=== PATIENT | female | born 1950 | race Caucasian/White ===

== ENCOUNTER 2018-10-17 12:38 | Outpatient (CLI) | payer MEDICARE, BC ==
--- NOTE | 2018-10-17 13:16 | RAD ---
CHEST TWO VIEWS: HISTORY: Dyspnea. FINDINGS: The cardiac silhouette and pulmonary vasculature are unremarkable. The mediastinum is midline. No c onfluent air space consolidation, pneumothorax, or pleural fluid is apparent. IMPRESSION: No active cardiopulmonary abnormalities are demonstrated. POS: CET
== END 2018-10-17 12:39 | disposition home or self-care (01) ==
LOC: RAD 12:38
PROVIDERS: ATTEND Internal Medicine Critical Care Medicine
DX: R06.00 Dyspnea, unspecified (principal)
CPT/HCPCS: 71046

== ENCOUNTER 2022-10-20 13:26 | Outpatient (CLI) | payer MEDICARE, BC ==
[2022-10-20 15:25] LABS: #Eosinphils 0.1 10x3/uL (0.0-0.5); #Monocytes 0.7 10x3/uL (0.0-1.1); #Neutrophils 3.5 10x3/uL (1.5-8.4); %Basophils 0.5 % (0.0-2.0); %Eosinophils 2.3 % (0.0-6.0); %Lymphocytes 30.2 % (18.0-47.0); %Monocytes 11.3 % (0.0-10.0); %Neutrophils 55.7 % (40.0-75.0); Mean Corpuscular HGB CONC 31.9 g/dL (32.0-36.0); Mean Corpuscular Hemoglobin 30.3 pg (27.0-33.0); Mean Corpuscular Volume 94.9 fl (81.6-98.3); Platelet Count 160 10x3/uL (150-450); RBC Distribution Width 13.3 % (11.5-14.5); Red Blood Cell (RBC) Count 3.96 10x6/uL (3.90-5.03); White Blood Cell (WBC) Count 6.2 10x3/uL (3.5-10.5)
[2022-10-20 15:42] LABS: ALT (SGPT) 14 U/L (8-55); AST (SGOT) 20 U/L (5-34); Albumin 4.4 g/dL (3.4-4.8); Alkaline Phosphatase 56 U/L (40-110); Anion Gap 12 mmol/L (10-20); BUN (Urea Nitrogen) 12 mg/dL (9.8-20.1); Bilirubin, Total 0.7 mg/dL (0.2-1.2); Calc. Creatinine Clearance 0 mL/min (70-130); Calcium 9.3 mg/dL (7.8-10.44); Carbon Dioxide 27 mmol/L (23-31); Chloride 107 mmol/L (98-107); Estimated GFR 61; Globulin 2.3 g/dL (2.4-3.5); Glucose 186 mg/dL (83-110); Potassium 3.9 mmol/L (3.5-5.1); Protein, Total 6.7 g/dL (5.8-8.1); Sodium 142 mmol/L (136-145)
[2022-10-20 21:11] LABS: Hemoglobin A1c 5.1 % (4.0-6.0)
== END 2022-10-20 13:27 | disposition home or self-care (01) ==
LOC: LABBT 13:26
PROVIDERS: ATTEND Surgery
DX: Z01.818 Encounter for other preprocedural examination (principal); C18.7 Malignant neoplasm of sigmoid colon; R16.0 Hepatomegaly, not elsewhere classified
CPT/HCPCS: 80053; 83036; 85025; 93005; 93010

== ENCOUNTER 2022-10-20 13:30 | Inpatient (IN) | payer MEDICARE, BC ==
[2022-10-20 13:51] VITALS: BMI 26.5
[2022-10-24] MEDS ORDERED: fentaNYL PF 100 MCG/2 ML SYRINGE ONE (06:51)
[2022-10-24] MEDS ORDERED: Midazolam HCl 2 mg/2 ml Vial ONE (07:12)
[2022-10-24] MEDS ORDERED: fentaNYL 50 mcg/mL 1 mL Vial ONE (07:12)
[2022-10-24] MEDS ORDERED: Sodium Chloride 0.9% 100 ML ONE (07:28)
[2022-10-24] MEDS ORDERED: cefOXitin 2 GM VIAL ONE (07:28)
[2022-10-24] MEDS ORDERED: Ondansetron PF 4 MG/2 ML Vial ONE (07:40)
[2022-10-24] MEDS ORDERED: Bupivacaine HCl 0.5%/Epinephrine 1:200,000/PF 30 ml Vial ONE (07:40)
[2022-10-24] MEDS ORDERED: Dexamethasone 20 MG/5 ML VIAL ONE (07:40)
[2022-10-24] MEDS ORDERED: PHENYLEPHRINE-NS 100 MCG/ML 10 ML SYRINGE ONE (07:40)
[2022-10-24] MEDS ORDERED: Lidocaine 1% PF 5 ML VIAL ONE (07:40)
[2022-10-24] MEDS ORDERED: PROPOFOL 200 MG/20 ML VIAL ONE (07:40)
[2022-10-24] MEDS ORDERED: Rocuronium Bromide 10 MG/ML (10ML VIAL) ONE (07:40)
[2022-10-24] MEDS ORDERED: SUGAMMADEX SODIUM 200 MG/2 ML VIAL ONE (09:14)
[2022-10-24] MEDS ORDERED: Promethazine HCl 25 MG/ML VIAL IM PRN ×2 (09:34→09:47)
[2022-10-24] MEDS ORDERED: Morphine 2 MG/ML VIAL SLOW IVP PRN (09:34)
[2022-10-24] MEDS ORDERED: Ipratropium/Albuterol 3 ML NEB NEB PRN (09:34)
[2022-10-24] MEDS ORDERED: Ondansetron PF 4 MG/2 ML Vial IVP PRN (09:34)
[2022-10-24] MEDS ORDERED: hydrALAZINE 20 MG/ML VIAL SLOW IVP PRN (09:34)
[2022-10-24] MEDS ORDERED: Ondansetron HCl/PF 4 MG/2 ML Vial IVP PRN (09:47)
[2022-10-24] MEDS ORDERED: Fentanyl 250 MCG/5 ML VIAL ONE (10:00)
[2022-10-24] MEDS ORDERED: Morphine 4 MG/ML VIAL SLOW IVP PRN (10:05)
[2022-10-24] MEDS ORDERED: Ketorolac Tromethamine 30 MG/ML VIAL ONE (11:10)
[2022-10-24] MEDS: Ketorolac Tromethamine 30 MG/ML VIAL IVP SCH ×3 (11:12→23:12)
[2022-10-24] MEDS: Morphine 4 MG/ML VIAL SLOW IVP PRN ×3 (12:06→20:54)
[2022-10-24] MEDS: Sodium Chloride 0.9% 1,000 ML IV SCH ×2 (13:50→20:51)
[2022-10-24] MEDS: cefOXitin Sodium 1 GM in Sodium Chloride 0.9% 100 ML IVPB SCH ×2 (15:48→23:12)
[2022-10-24] MEDS: Famotidine/PF 20 mg/2ml Vial SLOW IVP SCH (20:53)
[2022-10-24] MEDS: Famotidine 20 MG TAB PO SCH (21:07)
[2022-10-25 05:33] LABS: #Monocytes 2.1 thou/uL (0.11-0.59); #Neutrophils 8.4 thou/uL (1.40-6.50); %Basophils 0.2 % (0.0-1.0); %Monocytes 17.3 % (0.0-10.0); %Neutrophils 68.1 % (42.0-75.0); Hemoglobin 10.1 g/dL (12.0-16.0); Mean Corpuscular HGB CONC 30.4 g/dL (32.0-36.0); Mean Corpuscular Hemoglobin 29.7 pg (27.0-31.0); Mean Corpuscular Volume 97.6 fl (78.0-98.0); Mean Platelet Volume 10.6 fL (7.4-10.4); Platelet Count 151 10x3/uL (130-400); RBC Distribution Width 13.2 % (11.5-14.5); White Blood Cell (WBC) Count 12.3 10x3/uL (4.8-10.8)
[2022-10-25] MEDS: Ketorolac Tromethamine 30 MG/ML VIAL IVP SCH ×3 (05:34→16:16)
[2022-10-25] MEDS: Sodium Chloride 0.9% 1,000 ML IV SCH ×3 (05:35→21:24)
[2022-10-25 05:58] LABS: Anion Gap 9 mmol/L (10-20); BUN (Urea Nitrogen) 12 mg/dL (9.8-20.1); Calc. Creatinine Clearance 56 mL/min (70-130); Carbon Dioxide 23 mmol/L (23-31); Chloride 111 mmol/L (98-107); Estimated GFR 63; Glucose 107 mg/dL (83-110); Potassium 4.4 mmol/L (3.5-5.1); Sodium 139 mmol/L (136-145)
[2022-10-25] MEDS: Morphine 4 MG/ML VIAL SLOW IVP PRN (08:41)
[2022-10-25] MEDS: Famotidine 20 MG TAB PO SCH ×2 (08:41→21:11)
[2022-10-25] MEDS: Famotidine/PF 20 mg/2ml Vial SLOW IVP SCH ×2 (11:05→21:24)
[2022-10-26] MEDS: Ketorolac Tromethamine 30 MG/ML VIAL IVP SCH ×5 (00:01→23:47)
[2022-10-26] MEDS: Sodium Chloride 0.9% 1,000 ML IV SCH ×3 (00:57→20:37)
[2022-10-26] MEDS: Famotidine 20 MG TAB PO SCH ×2 (09:38→20:37)
[2022-10-26] MEDS: Famotidine/PF 20 mg/2ml Vial SLOW IVP SCH ×2 (11:01→23:56)
[2022-10-27] MEDS: Ketorolac Tromethamine 30 MG/ML VIAL IVP SCH (05:11)
[2022-10-27] MEDS: Sodium Chloride 0.9% 1,000 ML IV SCH (05:57)
[2022-10-27] MEDS: Famotidine 20 MG TAB PO SCH (08:27)
[2022-10-27] MEDS: Famotidine/PF 20 mg/2ml Vial SLOW IVP SCH (08:27)
[2022-10-27 09:32] VITALS: TEMP 98.1
[2022-10-27 12:21] VITALS: BP 163/79
== END 2022-10-27 13:45 | disposition home or self-care (01) | DRG 331 ==
LOC: SURG A 10-24 05:52
PROVIDERS: ADMIT Surgery; ATTEND Surgery
PROC: 0DTN0ZZ Resection of Sigmoid Colon, Open Approach (ICD-10-PCS; principal; 2022-10-24)
DX: C18.7 Malignant neoplasm of sigmoid colon (principal); F41.9 Anxiety disorder, unspecified; E78.5 Hyperlipidemia, unspecified; H35.30 Unspecified macular degeneration; Z90.49 Acquired absence of other specified parts of digestive tract; Z79.899 Other long term (current) drug therapy
CPT/HCPCS: 36415; 36416; 80048; 85025; 88305; 88307; C1713; C1889; J0694; J1100; J1650; J1885; J2250; J2270; J2272; J2405; J2704; J3010; J3490; J7050; S0028